=== PATIENT | male | born 1970 | race Caucasian/White ===

== ENCOUNTER 2016-06-04 | Outpatient (CLI) | payer MEDICAID | END 2016-06-04 16:00 | disposition home or self-care (01) | DX: R03.0 Elevated blood-pressure reading, without diagnosis of hypertension (principal) ==

== ENCOUNTER 2017-07-06 15:03 | Outpatient (CLI) | payer MEDICAID ==
--- NOTE | 2017-07-07 09:58 | XRAY Report ---
COMPLETE LUMBAR SPINE: 07/06/2017 CLINICAL INDICATION: Back pain. FINDINGS: AP, lateral, oblique, coned down views of the lumbar spine demonstrate mild degenerative disk disease, with disk space narrowing worst at L5-S1. There is no evidence of compression fracture. The bowel gas pattern is normal. IMPRESSION: MILD DEGENERATIVE CHANGES AT L5-S1. TD: 07/07/2017 09:57
--- NOTE | 2017-07-07 10:01 | XRAY Report ---
THREE VIEWS THORACIC SPINE: 07/06/2017 CLINICAL INDICATION: Back pain. FINDINGS: AP, lateral, swimmer's views of the thoracic spine demonstrate normal height and alignment of the vertebral bodies. The disk spaces are preserved. No paraspinal hematoma is seen. IMPRESSION: NORMAL THORACIC SPINE. TD: 07/07/2017 10:00
== END 2017-07-06 15:04 | disposition home or self-care (01) ==
LOC: DI.N 15:03
PROVIDERS: ATTEND Nurse Practitioner Gerontology
DX: M51.36 Other intervertebral disc degeneration, lumbar region (principal); M51.37 Other intervertebral disc degeneration, lumbosacral region
CPT/HCPCS: 72072; 72110

== ENCOUNTER 2017-07-23 10:27 | Outpatient (CLI) | payer MEDICAID ==
--- NOTE | 2017-07-23 12:53 | XRAY Report ---
THREE VIEW CERVICAL SPINE: 07/23/2017 CLINICAL INDICATION: Neck pain. FINDINGS: AP, lateral, odontoid views of the cervical spine demonstrate mild degenerative changes. There is no evidence of fracture or subluxation. The prevertebral soft tissues are unremarkable. IMPRESSION: MILD DEGENERATIVE CHANGES. TD: 07/23/2017 12:52
== END 2017-07-23 10:28 | disposition home or self-care (01) ==
LOC: DI.N 10:27
PROVIDERS: ATTEND Nurse Practitioner
DX: M47.892 Other spondylosis, cervical region (principal)
CPT/HCPCS: 72040

== ENCOUNTER 2017-09-16 10:26 | Outpatient (CLI) | payer MEDICAID ==
--- NOTE | 2017-09-16 14:52 | XRAY Report ---
* REVISED: THIS REPORT WAS ORIGINALLY SIGNED ON 09/16/2017 @ 1552. THE ORDERING PROVIDER FIELD REVISED ON 09/20/2017. * RIGHT INDEX FINGER: 09/16/2017 HISTORY: Swelling. FINDINGS: Three views of the right index finger show no evidence of fracture, malalignment, cystic erosion, joint space narrowing or other bony pathology. There is mild soft tissue swelling adjacent to the PIP joint, more marked along the radial aspect. No soft tissue calcification or radiopaque foreign body. IMPRESSION: RIGHT INDEX FINGER SOFT TISSUE SWELLING WITHOUT UNDERLYING BONY PATHOLOGY. TD: 09/16/2017 14:33 LOLI
== END 2017-09-16 10:27 | disposition home or self-care (01) ==
LOC: DI.N 10:26
PROVIDERS: ATTEND Nurse Practitioner Gerontology
DX: M79.89 Other specified soft tissue disorders (principal)
CPT/HCPCS: 36415; 73140; 84550

== ENCOUNTER 2017-09-16 10:42 | Outpatient (CLI) | payer MEDICAID | END 2017-09-16 10:43 | disposition home or self-care (01) | LOC: LAB.N 10:42 | PROVIDERS: ATTEND Nurse Practitioner Gerontology | DX: R22.30 Localized swelling, mass and lump, unspecified upper limb (principal) | CPT/HCPCS: 36415; 84550 ==

== ENCOUNTER 2018-06-13 18:45 | Emergency (ER) | payer MEDICAID ==
[2018-06-13] MEDS ORDERED: IPRATROPIUM/ALBUTEROL 3 ML NEB INH STA (20:19)
[2018-06-13] MEDS ORDERED: predniSONE 20 MG TABLET PO STA (20:19)
--- NOTE | 2018-06-13 21:02 | XRAY Report ---
Reason: cough, dyspnea Procedure Date: 06/13/2018 Accession Number: [id number] / [id number] Procedure: XR - Chest 2 View X-Ray CPT Code: 01403 FULL RESULT: EXAM: CHEST RADIOGRAPHY EXAM DATE: 06/13/2018 08:33 PM. CLINICAL HISTORY: Cough, dyspnea. COMPARISON: THORACIC SPINE 3 VIEW 07/06/2017 3:24 PM. TECHNIQUE: 2 views. FINDINGS: Lungs/Pleura: No focal opacities evident. No pleural effusion. No pneumothorax. Normal volumes. Mediastinum: Heart and mediastinal contours are unremarkable. Other: None. IMPRESSION: No acute intrathoracic plain film abnormality. RADIA
--- NOTE | 2018-06-13 21:14 | ED Physician Documentation ---
PD HPI URI - Stated complaint Stated Complaint: COUCH/NEAR SYNCOPE - Chief complaint Chief Complaint: Resp - History obtained from History obtained from: Patient - History of Present Illness Timing - onset: How many weeks ago (3) Timing duration: Weeks (3) Timing details: Gradual onset, Waxing and waning Associated symptoms: Dry cough, Dyspnea, Other (chest congestion). No: Fever, Bilateral edema, Unilateral edema Recently seen: Not recently seen - Additional information Additional information: c/o 3 weeks of productive cough, chest congestion, dyspnea. He has had episodes of lightheadedness with coughing including episode of syncope (with coughing only). Review of Systems Constitutional: reports: Myalgias. denies: Fever Throat: denies: Sore throat Cardiac: reports: Reviewed and negative Respiratory: reports: Dyspnea, Cough. denies: Hemoptysis, Wheezing GI: reports: Reviewed and negative Neurologic: reports: Syncope. denies: Head injury PD PAST MEDICAL HISTORY - Past Medical History Past Medical History: Yes Cardiovascular: Hypertension Respiratory: Pneumonia Neuro: None Endocrine/Autoimmune: None GI: None : Kidney stones HEENT: None Musculoskeletal: None - Past Surgical History Past Surgical History: Yes - Present Medications Home Medications: Ambulatory Orders Medication Instructions Recorded Confirmed Albuterol Sulf [Ventolin Hfa 1 - 2 puffs INH Q4HR PRN #1 inhaler 06/13/18 Inhaler] predniSONE [Prednisone] 40 mg PO DAILY 3 Days #6 tablet 06/13/18 - Allergies Allergies/Adverse Reactions: Allergies Allergy/AdvReac Type Severity Reaction Status Date / Time meperidine HCl * AdvReac Intermediate "feels Verified 06/13/18 19:02 [From Debbie] mirtha" - Social History Does the pt smoke?: No Smoking Status: Never smoker Does the pt drink ETOH?: Yes ETOH Use: Beer Does the pt have substance abuse?: No Substance Use and Type: Marijuana - Immunizations Immunizations are current?: Yes Immunizations: TDAP current <10years - POLST Patient has POLST: No PD ED PE NORMAL - Vitals Vital signs reviewed: Yes - General General: Alert and oriented X 3, No acute distress, Well developed/nourished - HEENT HEENT: Ears normal, Moist mucous membranes, Pharynx benign - Neck Neck: Supple, no meningeal sign - Cardiac Cardiac: RRR, No murmur - Respiratory Respiratory: No respiratory distress, Clear bilaterally - Neuro Neuro: Alert and oriented X 3, 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, No motor deficit, No sensory deficit, Normal speech Eye Opening: Spontaneous Motor: Obeys Commands Verbal: Oriented GCS Score: 15 Results - Vitals Vitals: Oxygen O2 Source Room air - Rads (name of study) chest xray Radiology: Prelim report reviewed, See rad report PD MEDICAL DECISION MAKING - ED course Complexity details: reviewed results, re-evaluated patient, considered differential, d/w patient Departure - Departure Disposition: 01 Home, Self Care Clinical Impression: Bronchitis Condition: Good Instructions: ED Bronchitis Asthmatic Follow-Up: [facility] [Provider Group] [facility] [Provider Group] Prescriptions: Albuterol Sulf [Ventolin Hfa Inhaler] 1 - 2 puffs INH Q4HR PRN #1 inhaler PRN Reason: Shortness Of Air/Wheezing predniSONE [Prednisone] 40 mg PO DAILY 3 Days #6 tablet Discharge Date/Time: 06/13/18 21:59
[2018-06-13 21:56] VITALS: BP 148/83
== END 2018-06-13 21:59 | disposition home or self-care (01) ==
LOC: ED 18:45
DX: J40 Bronchitis, not specified as acute or chronic (principal)
CPT/HCPCS: 71046; 94640; 94664; 99283; J7512

== ENCOUNTER 2021-02-27 16:10 | Outpatient (CLI) | payer MEDICAID | END 2021-02-27 23:59 | disposition home or self-care (01) | LOC: LAB.N 16:10 | DX: U07.1 COVID-19 (principal) ==

== ENCOUNTER 2021-03-04 21:11 | Outpatient (CLI) | payer MEDICAID | END 2021-03-04 21:12 | disposition short-term general hospital (02) | LOC: EMS 21:11 | DX: U07.1 COVID-19 (principal); R55 Syncope and collapse | CPT/HCPCS: A0425; A0427; A0999 ==

== ENCOUNTER 2022-09-22 02:03 | Outpatient (CLI) | payer OTHER | END 2022-09-22 02:10 | disposition short-term general hospital (02) | LOC: EMS 02:03 | DX: R10.9 Unspecified abdominal pain (principal); R11.2 Nausea with vomiting, unspecified; R46.89 Other symptoms and signs involving appearance and behavior | CPT/HCPCS: A0425; A0427 ==

== ENCOUNTER 2023-05-28 11:42 | Outpatient (CLI) | payer OTHER | END 2023-05-28 23:59 | disposition critical access hospital (66) | LOC: EMS 11:42 | DX: F41.9 Anxiety disorder, unspecified (principal); R07.9 Chest pain, unspecified | CPT/HCPCS: A0425; A0427 ==

== ENCOUNTER 2023-05-28 12:25 | Emergency (ER) | payer OTHER ==
--- NOTE | 2023-05-28 12:58 | ED Physician Documentation ---
PD HPI CHEST PAIN - Stated complaint Stated Complaint: CHEST PRESSURE - Chief complaint Chief Complaint: Cardiac - Additional information Additional information: 52-year-old male with history of major depressive disorder as well as anxiety. Patient recently went off his mood stabilizer medications about 2 months ago because he was recently established with a new mental health provider at the [place] [facility]. He said that he did this on his own without being advised by new provider and is worried that this might have been a bad idea because he has been having an uptake in his panic attacks recently. About 3 to 4 days ago patient said that he started to fear experience heart palpitations he said that this happened many has before he said that it did feel similar to a panic attack but he has a hard time controlling his anxiety when th ilan heart palpitations occur. He said that has been worked up many times what he describes as his heart palpitations and everything has always come back unremarkable. He said he has been trying to ignore the heart palpitations but he now feels like he is having chest pressure and chest pain as well as a headache and dizziness and he says that he is having a hard time controlling his symptoms at home he originally went to the walk-in clinic who ended up sending him here to the emergency department for further evaluation and workup. PD PAST MEDICAL HISTORY - Past Medical History Past Medical History: Yes Cardiovascular: Hypertension Respiratory: Pneumonia Neuro: None Endocrine/Autoimmune: None GI: None : Kidney stones HEENT: None Psych: Anxiety Musculoskeletal: None - Past Surgical History Past Surgical History: Yes - Allergies Allergies/Adverse Reactions: Allergies Allergy/AdvReac Type Severity Reaction Status Date / Time meperidine HCl * AdvReac Intermediate "feels Verified 05/28/23 12:38 [From Debbie] mirtha" - Social History Does the pt smoke?: No Smoking Status: Never smoker Does the pt drink ETOH?: Yes Does the pt have substance abuse?: No - Immunizations Immunizations are current?: Yes Immunizations: TDAP current <10years - POLST Patient has POLST: No PD ED PE NORMAL - Vitals Vital signs reviewed: Yes - General General: Alert and oriented X 3, No acute distress, Well developed/nourished - HEENT HEENT: Atraumatic, PERRL - Neck Neck: Supple, no meningeal sign, No JVD - Cardiac Cardiac: RRR, No murmur, No gallop, Strong equal pulses - Respiratory Respiratory: No respiratory distress - Abdomen Abdomen: Normal bowel sounds, Soft - Derm Derm: Normal color, Warm and dry, No rash - Extremities Extremities: No edema, No calf tenderness / cord - Neuro Neuro: Alert and oriented X 3, 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 Relevant findings are: Rate: Rate (enter#) (57) Rhythm: NSR Sylvester: Normal Intervals: Normal AL QRS: Normal Ischemia: Normal ST segments Computer interpretation: Disagree with computer - Labs Labs: Laboratory Tests 05/28/23 05/28/23 05/28/23 13:12 13:12 13:12 WBC 7.6 RBC 4.69 L Hgb 14.7 Hct 43.5 MCV 92.8 MCH 31.3 H MCHC 33.8 RDW 11.5 L Plt Count 268 MPV 9.1 Neut # (Auto) 6.0 Lymph # (Auto) 1.0 L [place] # (Auto) 0.5 Eos # (Auto) 0.1 Baso # (Auto) 0.1 Absolute Nucleated RBC 0.00 Nucleated RBC % 0.0 Sodium 139 Potassium 4.1 Chloride 106 Carbon Dioxide 26 Anion Gap 7.0 BUN 22 H Creatinine 1.2 Estimated GFR (MDRD) 64 L Glucose 107 H Calcium 9.8 Total Bilirubin 0.8 AST 12 ALT 10 Alkaline Phosphatase 56 Troponin I High Sens 2.4 B-Natriuretic Peptide 61 Total Protein 7.3 Albumin 4.6 Globulin 2.7 Albumin/Globulin Ratio 1.7 - Rads (name of study) Chest x-ray Relevant Findings:: Final report received, EMP independent interpretation of test, Other (No acute cardiopulmonary process) PD Medical Decision Making - ED course ED course: Exam without evidence of volume overload so doubt heart failure. EKG without signs of active ischemia. Given the timing of pain to ER presentation, single troponin delta was negative so doubt NSTEMI. Presentation not consistent with acute PE (Wells low risk), pneumothorax (not visualized on chest xr), thoracic aortic dissection, pericarditis, tamponade, pneumonia (no infectious symptoms, clear chest xr), myocarditis (no recent illness, neg trop). HEART score:2 so plan to discharge patient home with PCP follow up. Patient also strongly enc ouraged to follow-up with his mental health provider on Wednesday so that he can get restarted on some sort of either mood stabilizer or antidepressant to help with his anxiety. He denies any suicidal ideation at this time no homicidal ideation. He says that he plans to follow-up with his primary care provider mental health provider on Wednesday and also wants to get established with a counselor and is going to pursue this through the [place]. Departure - Departure Disposition: Home, Self Care Clinical Impression: Anxiety, Chest pain in adult Condition: Good Instructions: ED Chest Pain Atypical Unkn Cause Comments: Thank you for trusting us with your care. As we discussed your labsHave come back normal your troponin is not elevated your EKG is also normal your chest x- ray is also normal making this less worried or suspicious that this is due to possible heart attack. I believe that the symptoms you are experiencing as you discussed with me or due to your severe anxiety that you are suffering from right now. Follow-up with your mental health provider about discussion of starting medication to help with this and [facility] any sort of [facility] that you are able to get in with to help with anxiety that you are experiencing. Please come back to emergency department if your chest pain gets any worse or comes back, or any other concerning symptoms. Forms: PCP List Discharge Date/Time: 05/28/23 15:09
[2023-05-28 13:24] LABS: BASOPHILS # (AUTO) 0.1 10^3/uL (0.0-0.1); BASOPHILS % (AUTO) 0.8 %; EOSINOPHILS # (AUTO) 0.1 10^3/uL (0.0-0.7); EOSINOPHILS % (AUTO) 0.8 %; HCT - HEMATOCRIT 43.5 % (42.0-52.0); HGB - HEMOGLOBIN 14.7 g/dL (14.0-18.0); LYMPHOCYTES % (AUTO) 13.5 %; MEAN CORPUSCULAR HEMOGLOBIN 31.3 pg (27.0-31.0); MEAN CORPUSCULAR HGB CONC 33.8 g/dL (32.0-36.0); MEAN CORPUSCULAR VOLUME 92.8 fL (80.0-94.0); MEAN PLATELET VOLUME 9.1 fL (7.4-11.4); MONOCYTES # (AUTO) 0.5 10^3/uL (0.0-1.0); NEUTROPHILS % (AUTO) 78.6 %; PLT - PLATELET COUNT 268 10^3/uL (130-450); RED BLOOD COUNT 4.69 10^6/uL (4.70-6.10); RED CELL DISTRIBUTION WIDTH 11.5 % (12.0-15.0); WHITE BLOOD COUNT 7.6 x10^3/uL (4.8-10.8)
[2023-05-28 13:45] LABS: TROPONIN I HIGH SENSITIVITY 2.4 ng/L (2.3-19.7)
[2023-05-28 14:16] LABS: ALBUMIN 4.6 g/dL (3.2-5.5); ALBUMIN/GLOBULIN RATIO 1.7 (1.0-2.2); BILIRUBIN,TOTAL 0.8 mg/dL (0.2-1.0); CALCIUM 9.8 mg/dL (8.5-10.3); CREATININE 1.2 mg/dL (0.6-1.3); POTASSIUM 4.1 mmol/L (3.5-4.5); TOTAL PROTEIN 7.3 g/dL (6.4-8.9)
--- NOTE | 2023-05-28 14:27 | XRAY Report ---
PROCEDURE: Chest 2V INDICATIONS: chest pain TECHNIQUE: 2 views of the chest were acquired. COMPARISON: Chest x-ray, . FINDINGS: Surgical changes and devices: None. Lungs and pleura: No pleural effusions or pneumothorax. Lungs are clear. Mediastinum: Mediastinal contours appear normal. Heart size is normal. Bones and chest wall: No suspicious bony lesions. Overlying soft tissues appear unremarkable. IMPRESSION: No acute cardiopulmonary process. Reviewed by: Robert Lerma MD on 05/28/2023 2:26 PM PST Approved by: Robert Lerma MD on 05/28/2023 2:26 PM PST Station ID: [id number]
[2023-05-28] MEDS: hydrOXYzine PAMOATE 25 MG CAPSULE PO STA (14:29)
[2023-05-28 14:41] VITALS: BP 140/95; O2SAT 98
== END 2023-05-28 15:09 | disposition home or self-care (01) ==
LOC: EDUNIT# → ED 12:25
DX: F41.9 Anxiety disorder, unspecified (principal); R07.9 Chest pain, unspecified; I10 Essential (primary) hypertension; Z87.442 Personal history of urinary calculi
CPT/HCPCS: 36415; 71046; 80053; 83880; 84484; 85025; 93005; 99283; 99284; A9270